=== PATIENT | female | born 1950 | race American Indian/Alaskan Native ===

== ENCOUNTER 2016-12-28 17:33 | Emergency (ER) | payer MEDICARE ==
[2016-12-28] MEDS ORDERED: NACL 0.9% 500 ML 500 ML IV ONE (17:53)
[2016-12-28 18:17] LABS: Basophils % (Auto) 0.2 % (0.0-1.8); Eosinophils % (Auto) 0.2 % (0.0-4.3); Hemoglobin 9.9 gm/dl (10.1-14.3); Mean Corpuscular HGB Conc 31 % (30-34); Mean Corpuscular Hemoglobin 22 pg (28-32); Mean Corpuscular Volume 69 fl (79-97); Platelet Count 295 K/mm3 (140-440); Red Blood Count 4.63 M/mm3 (3.65-5.03); Red Cell Distribution Width 15.8 % (13.2-15.2); White Blood Count 16.5 K/mm3 (4.5-11.0)
[2016-12-28 18:26] LABS: INR 0.84 (0.87-1.13)
[2016-12-28 18:39] LABS: Alanine Aminotransferase 18 units/L (7-56); Albumin 3.7 g/dL (3.9-5); Albumin/Globulin Ratio 0.9 %; Alkaline Phosphatase 80 units/L (35-129); Anion Gap 19 mmol/L; BUN/Creatinine Ratio 13; Blood Urea Nitrogen 13 mg/dL (7-17); Calcium 10.6 mg/dL (8.4-10.2); Carbon Dioxide 27 mmol/L (22-30); Chloride 96.4 mmol/L (98-107); Glucose 126 mg/dL (65-100); Potassium 3.4 mmol/L (3.6-5.0); Sodium 139 mmol/L (137-145); Total Protein 7.6 g/dL (6.3-8.2)
[2016-12-28] MEDS ORDERED: NORCO 5/325 PO ONE (19:49)
[2016-12-28] MEDS ORDERED: NORCO 5/325 ONE (19:54)
[2016-12-28] MEDS ORDERED: ZOFRAN IV ONE (20:28)
[2016-12-28] MEDS ORDERED: NACL 0.9% 1000 ML 1,000 ML IV ONE (20:28)
[2016-12-28] MEDS ORDERED: DILAUDID IV ONE (20:28)
[2016-12-28] MEDS ORDERED: ZOSYN/NS 4.5GM/100ML 4.5 GM/100 ML VIAL IV ONE (20:30)
--- NOTE | 2016-12-28 20:37 | Emergency Department Report ---
ED Abdominal Pain HPI - General Chief Complaint: Fever Stated Complaint: ABD PAIN FOLLOWING SURGERY Time Seen by Provider: 12/28/16 20:10 Source: patient, family Mode of arrival: Ambulatory Limitations: No Limitations - History of Present Illness Initial Comments: Ms. Reyes is a 58-year-old female presents into the ED with abdominal pain and fever which started yesterday. She had a total abdominal hysterectomy a week ago in a hospital in [place]. She is also nauseated but she hasn't vomited today. She recommended a temperature of 102 at home prior to calling the EMS. Abdominal pain is diffuse and severe. She denies any vaginal bleeding however she says she is having some mild yellowish vaginal discharge which does not smell. MD Complaint: abdominal pain, other (fever and nausea) -: Last night Location: diffuse Radiation: none Migration to: no migration Severity scale (0 -10): 10 Quality: sharp Consistency: constant Improves With: nothing Worsens With: nothing Context: recent surgery/procedure (hysterectomy 1 week ago.) Associated Symptoms: nausea, fever, chills, anorexia. denies: vomiting, diarrhea, constipation, dysuria, hematemesis, hematochezia, melena, hematuria, syncope - Related Data LMP (females 10-50): other (menopausal) Allergies Allergy/AdvReac Type Severity Reaction Status Date / Time car Allergy Anaphylaxis Verified 12/28/16 17:52 peas Allergy Anaphylaxis Verified 12/28/16 17:51 soy Allergy Rash Verified 12/28/16 17:50 metronidazole [From Flagyl] AdvReac Dizziness Verified 12/28/16 17:50 berries AdvReac Nausea Uncoded 12/28/16 17:52 ED Review of Systems ROS: Stated complaint: ABD PAIN FOLLOWING SURGERY Other details as noted in HPI Comment: All other systems reviewed and negative Constitutional: chills, fever Eyes: denies: eye pain, eye discharge, vision change ENT: denies: ear pain, throat pain Respiratory: shortness of breath, other (denies chest pain). denies: cough, wheezing Cardiovascular: denies: chest pain, palpitations, syncope Endocrine: no symptoms reported Gastrointestinal: abdominal pain, nausea. denies: vomiting, constipation, hematemesis, melena, hematochezia Genitourinary: denies: urgency, dysuria, hematuria, discharge Musculoskeletal: myalgia. denies: back pain, joint swelling, arthralgia Skin: denies: rash, lesions, change in color Neurological: denies: headache, weakness, paresthesias Psychiatric: denies: anxiety, depression, auditory hallucinations, visual hallucinations Hematological/Lymphatic: denies: easy bleeding, easy bruising ED Past Medical Hx - Past Medical History Previous Medical History?: Yes Hx Hypertension: Yes - Surgical History Past Surgical History?: Yes Additional Surgical History: hysterectomy - Social History Smoking Status: Never Smoker Substance Use Type: None ED Physical Exam - General Limitations: No Limitations General appearance: alert, in distress - Head Head exam: Present: atraumatic, normocephalic, normal inspection - Eye Eye exam: Present: normal appearance, PERRL - ENT ENT exam: Present: other (dry oral mucosa) - Neck Neck exam: Present: normal inspection - Respiratory Respiratory exam: Present: normal lung sounds bilaterally. Absent: respiratory distress - Cardiovascular Cardiovascular Exam: Present: tachycardia, diastolic murmur, gallop. Absent: systolic murmur, rubs - GI/Abdominal GI/Abdominal exam: Present: soft, tenderness, normal bowel sounds, other ( surgical wounds from laparoscopic surgery is completely healed no discharge or bleeding from the surgical wound site.). Absent: organomegaly, mass - Rectal Rectal exam: Present: deferred - Extremities Exam Extremities exam: Present: normal inspection, normal capillary refill - Back Exam Back exam: Present: normal inspection - Neurological Exam Neurological exam: Present: alert, oriented X3 - Psychiatric Psychiatric exam: Present: normal affect, normal mood. Absent: homicidal ideation, suicidal ideation - Skin Skin exam: Present: warm, dry, intact, normal color. Absent: rash ED Course Vital Signs 12/28/16 12/28/16 12/28/16 17:42 17:53 18:34 Temperature 99.9 F H 99.7 F H Pulse Rate 121 H 101 H Respiratory 22 Rate Blood Pressure 155/91 Blood Pressure 162/85 [Left] O2 Sat by Pulse 100 95 Oximetry 12/28/16 12/28/16 12/28/16 18:45 19:00 19:15 Temperature Pulse Rate 99 H 97 H 98 H Respiratory 23 15 11 L Rate Blood Pressure 148/90 157/86 164/89 Blood Pressure [Left] O2 Sat by Pulse 95 93 Oximetry 12/28/16 12/28/16 12/28/16 19:30 19:38 19:46 Temperature Pulse Rate 106 H 130 H Respiratory 16 25 H Rate Blood Pressure 164/89 162/85 Blood Pressure [Left] O2 Sat by Pulse 95 98 92 Oximetry 12/28/16 12/28/16 12/28/16 19:50 20:00 20:15 Temperature 99.9 F H Pulse Rate 127 H 110 H Respiratory 24 17 Rate Blood Pressure 129/74 132/79 Blood Pressure [Left] O2 Sat by Pulse 94 97 Oximetry 12/28/16 12/28/16 12/28/16 20:30 20:45 21:00 Temperature Pulse Rate 108 H 102 H 99 H Respiratory 20 19 18 Rate Blood Pressure 131/71 134/68 134/68 Blood Pressure [Left] O2 Sat by Pulse 100 95 Oximetry 12/28/16 12/28/16 12/28/16 21:52 22:00 22:16 Temperature Pulse Rate 97 H 99 H Respiratory 16 14 Rate Blood Pressure 134/68 104/60 104/60 Blood Pressure [Left] O2 Sat by Pulse 92 98 97 Oximetry 12/28/16 12/28/16 12/28/16 22:30 22:46 23:00 Temperature Pulse Rate 99 H 100 H 97 H Respiratory 14 14 14 Rate Blood Pressure 104/60 104/60 113/65 Blood Pressure [Left] O2 Sat by Pulse 99 98 97 Oximetry 12/28/16 12/28/16 12/28/16 23:15 23:16 23:21 Temperature 98.7 F Pulse Rate 100 H 100 H Respiratory 14 13 Rate Blood Pressure 113/65 113/65 Blood Pressure [Left] O2 Sat by Pulse 98 98 Oximetry 12/28/16 12/28/16 12/29/16 23:30 23:46 00:00 Temperature Pulse Rate 102 H 100 H 97 H Respiratory 15 15 19 Rate Blood Pressure 113/65 113/65 106/67 Blood Pressure [Left] O2 Sat by Pulse 99 98 96 Oximetry 12/29/16 12/29/16 12/29/16 00:16 00:30 00:46 Temperature Pulse Rate 104 H 98 H 99 H Respiratory 14 13 13 Rate Blood Pressure 106/67 106/67 106/67 Blood Pressure [Left] O2 Sat by Pulse 97 99 98 Oximetry 12/29/16 12/29/16 12/29/16 01:00 01:16 01:30 Temperature Pulse Rate 99 H 94 H 93 H Respiratory 10 L 17 13 Rate Blood Pressure 106/67 111/69 111/69 Blood Pressure [Left] O2 Sat by Pulse 99 100 94 Oximetry 12/29/16 01:46 Temperature Pulse Rate 91 H Respiratory 13 Rate Blood Pressure 111/69 Blood Pressure [Left] O2 Sat by Pulse 99 Oximetry - Reevaluation(s) Reevaluation #1: 12/29/16 00:44 On reevaluation patient is feeling much better but still asking for pain medication. Heart rate is 105. A splint that she will be transferred back to [place] as requested by [employer] oncologist Dr Alberto Meng. - Consultations Consultation #1: 12/28/16 23:45 I consulted patient's [employer] oncologist Dr. Alberto Bajwa and he wanted the patient transferred back to [place] for further evaluation and management. ED Medical Decision Making - Lab Data Result diagrams: 12/28/16 18:00 12/28/16 18:00 - EKG Data EKG shows normal: sinus rhythm, intervals (first-degree AV block, LVH, no STEMI. ) - EKG Data When compared to previous EKG there are: previous EKG unavailable Interpretation: LVH - Differential Diagnosis Intra-abdominal abscess. Sepsis. Urinary tract infection. Abdominal pain Critical Care Time: Yes Critical care time in (mins) excluding proc time.: 40 Critical care attestation.: If time is entered above; I have spent that time in minutes in the direct care of this critically ill patient, excluding procedure time. ED Disposition Clinical Impression: Acute peritonitis Abdominal pain Qualifiers: Abdominal location: generalized Qualified Code(s): R10.84 - Generalized abdominal pain Fever Qualifiers: Fever type: unspecified Qualified Code(s): R50.9 - Fever, unspecified Disposition: [id number]/[id number] SHRT-TRM GEN HOSP IP Is pt being admited?: No Does the pt Need Aspirin: No Condition: Stable Referrals: PRIMARY CARE,MD [Primary Care Provider] - 3-5 Days
--- NOTE | 2016-12-28 20:47 | XRay Report ---
FINAL REPORT PROCEDURE: XR CHEST 1V AP TECHNIQUE: Chest radiograph anteroposterior view. CPT 77239 HISTORY: possible Sepsis COMPARISON: No prior studies are available for comparison. FINDINGS: Heart: Normal. Mediastinum/Vessels: Normal. Lungs/Pleural space: Normal. Bony thorax: No acute osseous abnormality. Life support devices: None. IMPRESSION: No acute cardiopulmonary abnormality.
[2016-12-28] MEDS ORDERED: NACL ONE (21:01)
--- NOTE | 2016-12-28 22:02 | Cat Scan Report ---
FINAL REPORT PROCEDURE: CT ABDOMEN PELVIS W CON TECHNIQUE: Computerized axial tomography of the abdomen and pelvis was performed after the IV injection of iodinated nonionic contrast. HISTORY: abd pain COMPARISON: No prior studies are available for comparison. FINDINGS: Liver, spleen, pancreas and adrenal glands are within normal limits. Mild degree perisplenic fluid is identified. There is mild degree dilatation right mid and distal ureter. 4 millimeter calcific density is noted involving the midpole left kidney in the region of a focal scar most likely representing dystrophic calcification. A large soft tissue density mass measuring 3.9 x 6.5 centimeters is noted in the right lateral pelvic wall displacing the right iliac vessels. Additional mildly enlarged lymph nodes are noted adjacent to bilateral external iliac veins. Moderate degree degenerative changes are noted involving the lumbar spine a Smyth bulb is in situ with empty urinary bladder. Moderate degree fluid is noted in the pelvic peritoneal cavity with enhancement of the peritoneal lining. There is no free air. Gallbladder demonstrates multiple small calculi. Small bowel loops are within normal limits. There is no definite inflammation of appendix. IMPRESSION: Mild degree of fluid in the pelvic peritoneal cavity. It appears loculated with the underlying changes suggestive of peritonitis. Mild degree free fluid in the perisplenic region. Large soft tissue mass along the right lateral pelvic wall most likely represents a lymph amira mass. Malignancy is suspected. Additional bilateral external iliac lymphadenopathy is noted. There is mild degree of right hydroureter without a definite obstructive lesion.
[2016-12-29] MEDS ORDERED: DILAUDID IV ONE (00:20)
[2016-12-29] MEDS ORDERED: MORPHINE ONE (00:26)
[2016-12-29 00:42] LABS: Bilirubin,Urine NEG (Negative); Blood,Urine SM (Negative); Ketones,Urine TR mg/dL (Negative); Leukocyte Esterase,Urine NEG (Negative); Nitrite,Urine NEG (Negative); Protein,Urine <15 mg/dL mg/dL (Negative); Urobilinogen,Urine < 2.0 mg/dL (<2.0)
[2016-12-29 05:08] VITALS: BP 131/64
== END 2016-12-29 03:25 | disposition short-term general hospital (02) ==
LOC: ED 17:33
DX: K65.9 Peritonitis, unspecified (principal); R10.84 Generalized abdominal pain; R50.9 Fever, unspecified; I10 Essential (primary) hypertension
CPT/HCPCS: 36415; 71010; 74177; 80053; 81001; 82140; 82805; 83880; 85025; 85610; 87040; 87086; 93005; 93010; 96361; 96365; 96375; 99291; J1170; J2405; J2543; J7030; J7040; Q9967; J2270